=== PATIENT | male | born 1945 | race Caucasian/White ===

== ENCOUNTER 2019-11-14 08:32 | Observation (INO) ==
[~2019-11-14 08:32] MED LIST: *HR* FentaNYL (PF) 100 MCG/2 ML VIAL IVP ONE; *HR* Midazolam HCl 2 MG/2 ML VIAL IVP ONE
[2019-11-14] MEDS ORDERED: 0.9 % Sodium Chloride 500 ML ONE (09:15)
[2019-11-14] MEDS ORDERED: Naloxone 0.4 MG/ML INJ IVP PRN (11:15)
[2019-11-14] MEDS ORDERED: Ondansetron 4 MG/2 ML VIAL IVP PRN (11:15)
[2019-11-14] MEDS ORDERED: *HR* Metoprolol 5 MG/5 ML VIAL IVP ONE (12:05)
[2019-11-14 12:24] LABS: Basophils % 0.4 %; Eosinophils # 0.3 K/mcL (0.0-0.6); Eosinophils % 2.8 %; Hemoglobin 9.9 g/dL (12.9-16.9); Immature Granulocytes % 0.3 % (0-4); Lymphocytes # 2.1 K/mcL (0.6-4.6); Lymphocytes % 20.9 %; Mean Corpuscular Hemoglobin 25.8 pg (28.0-33.3); Mean Corpuscular Volume 85.9 fL (83.0-100.0); Mean Platelet Volume 9.6 fL (9.4-12.4); Monocytes # 0.7 K/mcL (0.0-1.3); Monocytes % 6.9 %; Platelet Count 270 K/mcL (140-400); Red Blood Count 3.84 M/mcL (4.19-5.50); Red Cell Distribution Width 16.1 % (11.5-14.5); Segmented Neutrophils % 68.7 %; White Blood Count 10.2 K/mcL (4.3-11.1)
[2019-11-14 12:40] LABS: BUN/Creatinine Ratio 9 (6-26); Blood Urea Nitrogen 20 mg/dL (8-23); Calcium 9.2 mg/dL (8.6-10.3); Carbon Dioxide 29 mEq/L (23-29); Chloride 103 mEq/L (98-107); Glucose 112 mg/dL (70-105); Magnesium 1.6 mg/dL (1.6-2.6); Osmolality,Calculated 291 (280-300); Phosphorous 3.9 mg/dL (2.7-4.5); Potassium 4.9 mEq/L (3.5-5.1); Sodium 139 mEq/L (136-145); Troponin I < 0.03 ng/mL (< 0.04); eGFR For African Americans 35 (> 60); eGFR For Non-African Americans 29 (> 60)
[2019-11-14 12:54] LABS: Thyroid Stimulating Hormone 2.224 mcIU/mL (0.340-5.600)
[2019-11-14] MEDS ORDERED: 0.9 % Sodium Chloride 1,000 ML IVC SCH (14:15)
[2019-11-14] MEDS: *HR* OxyCODONE Immed Rel 5 MG TABLET PO PRN ×2 (14:19→20:24)
[2019-11-14] MEDS ORDERED: Latanoprost 2.5 ML BOTTLE BOTH EYES SCH (18:00)
[2019-11-14] MEDS: *HR* Heparin 5,000 UNIT/ML VIAL SQ SCH (20:24)
[2019-11-14] MEDS ORDERED: Mirtazapine 15 MG TABLET PO SCH (21:00)
[2019-11-15 04:02] LABS: Calcium 9.3 mg/dL (8.6-10.3); Potassium 4.3 mEq/L (3.5-5.1)
[2019-11-15] MEDS: *HR* Heparin 5,000 UNIT/ML VIAL SQ SCH (05:33)
[2019-11-15] MEDS: *HR* OxyCODONE Immed Rel 5 MG TABLET PO PRN (05:39)
[2019-11-15] MEDS ORDERED: BuPROPion XL (24 HR) 150 MG TABLET PO SCH (09:00)
[2019-11-15] MEDS ORDERED: traZODone 50 MG TABLET PO SCH (09:00)
[2019-11-15 10:48] VITALS: BP 161/73
== END 2019-11-15 13:59 | disposition home or self-care (01) ==
LOC: RAD 08:32 → 2ANU 08:32
PROVIDERS: ADMIT Family Medicine; ATTEND Family Medicine

== ENCOUNTER 2019-12-25 19:57 | Inpatient (IN) ==
[2019-12-25] MEDS ORDERED: Naloxone 0.4 MG/ML INJ IVP PRN (21:44)
[2019-12-25] MEDS ORDERED: 0.9 % Sodium Chloride 1,000 ML IVC SCH (21:45)
[2019-12-26 00:39] LABS: Bilirubin,Urine Negative (Negative); Blood,Urine Moderate (Negative); Clarity,Urine Clear (Clear); Color,Urine Yellow (Yellow); Glucose,Urine (UA) Normal (Normal); Ketones,Urine Negative (Negative); Leukocyte Esterase,Urine Small (Negative); Nitrite,Urine Positive (Negative); PH,Urine 5.5 pH Units (5.0-8.0); Protein,Urine 30 mg/dL (Neg-Trace); Urobilinogen,Urine Normal (Normal)
[2019-12-26 00:53] LABS: Bacteria,Urine Moderate per hpf (None-Few); Squamous Epithelial Cell,Urine Few per lpf (None-Few)
[2019-12-26] MEDS ORDERED: Ondansetron ODT 4 MG TAB.RAPDIS SL PRN (02:24)
[2019-12-26] MEDS ORDERED: Acetaminophen 325 MG TABLET PO PRN (02:24)
[2019-12-26] MEDS ORDERED: *HR* Promethazine 25 MG/ML VIAL IVP PRN (02:24)
[2019-12-26] MEDS ORDERED: levoFLOXacin 500 MG/100 ML 500 MG/100 ML BAG IVPB SCH (03:00)
[2019-12-26 04:07] LABS: INR 1.4
[2019-12-26 04:09] LABS: Activated Partial Thrombo Time 77.6 Seconds (26.0-36.0)
[2019-12-26 04:13] LABS: Immature Granulocytes % 0.3 % (0-4)
[2019-12-26 04:14] LABS: Eosinophils # 0.1 K/mcL (0.0-0.6); Eosinophils % 4.3 %; Hematocrit 16.5 % (37.5-50.1); Lymphocytes # 0.9 K/mcL (0.6-4.6); Lymphocytes % 26.6 %; Mean Corpuscular HGB Conc 30.3 g/dL (31.6-35.5); Mean Corpuscular Hemoglobin 25.8 pg (28.0-33.3); Mean Corpuscular Volume 85.1 fL (83.0-100.0); Monocytes # 0.4 K/mcL (0.0-1.3); Monocytes % 11.5 %; Platelet Count 139 K/mcL (140-400); Red Blood Count 1.94 M/mcL (4.19-5.50); Red Cell Distribution Width 15.8 % (11.5-14.5); Segmented Neutrophils % 57.3 %; White Blood Count 3.2 K/mcL (4.3-11.1)
[2019-12-26 04:17] LABS: Neutrophils # 1.8 K/mcL (1.6-8.9)
[2019-12-26 04:18] LABS: Alanine Aminotransferase 3 Units/L (7-52); Albumin/Globulin Ratio 0.7 (1.1-2.2); Alkaline Phosphatase 17 Units/L (34-104); Aspartate Amino Transferase 8 Units/L (13-39); BUN/Creatinine Ratio 13 (6-26); Bilirubin,Total 0.2 mg/dL (0.3-1.0); Blood Urea Nitrogen 20 mg/dL (8-23); Calcium 6.3 mg/dL (8.6-10.3); Carbon Dioxide 16 mEq/L (23-29); Chloride 114 mEq/L (98-107); Glucose 78 mg/dL (70-105); Osmolality,Calculated 285 (280-300); Phosphorous 2.5 mg/dL (2.7-4.5); Potassium 3.3 mEq/L (3.5-5.1); Sodium 137 mEq/L (136-145); eGFR For African Americans 55 (> 60); eGFR For Non-African Americans 46 (> 60)
[2019-12-26 04:22] LABS: Troponin I 0.05 ng/mL (< 0.04)
[2019-12-26] MEDS ORDERED: Potassium Phosphate 44 MEQ in 0.9 % Sodium Chloride 250 ML IVPB ONE (04:43)
[2019-12-26] MEDS ORDERED: *HR* Metoprolol 5 MG/5 ML VIAL IVP PRN (04:48)
[2019-12-26 05:01] LABS: Platelet Estimate Normal (Normal)
[2019-12-26 05:05] LABS: Hematocrit 23.4 % (37.5-50.1)
[2019-12-26 05:06] LABS: Hemoglobin 7.1 g/dL (12.9-16.9)
[2019-12-26] MEDS: *HR* Heparin 5,000 UNIT/ML VIAL SQ SCH ×3 (05:32→20:52)
[2019-12-26 06:07] LABS: Iron < 10 mcg/dL (65-175); Transferrin 105 mg/dL (203-362)
[2019-12-26] MEDS: cefTRIAXone 2,000 MG in Water for inj. (sterile) 20 ML IVP SCH (06:28)
[2019-12-26] MEDS ORDERED: 0.9 % Sodium Chloride 250 ML ONE ×2 (06:35→12:32)
[2019-12-26] MEDS: BuPROPion XL (24 HR) 150 MG TABLET PO SCH (08:19)
[2019-12-26] MEDS: traZODone 50 MG TABLET PO SCH (08:19)
[2019-12-26] MEDS ORDERED: Sodium Bicarbonate 50 MEQ/50 ML VIAL IVP ONE (10:00)
[2019-12-26 10:46] LABS: Ferritin 104 ng/mL (20-250)
[2019-12-26] MEDS: Sodium Bicarbonate 75 MEQ in 0.45 % Sodium Chloride 1,000 ML IVC SCH (11:14)
[2019-12-26 18:08] LABS: Hematocrit 36.8 % (37.5-50.1)
[2019-12-26 18:10] LABS: Hemoglobin 11.7 g/dL (12.9-16.9)
[2019-12-27] MEDS: Sodium Bicarbonate 75 MEQ in 0.45 % Sodium Chloride 1,000 ML IVC SCH ×2 (00:10→16:52)
[2019-12-27] MEDS: *HR* OxyCODONE Immed Rel 5 MG TABLET PO PRN ×2 (01:59→08:23)
[2019-12-27 03:53] LABS: Eosinophils # 0.4 K/mcL (0.0-0.6); Eosinophils % 5.3 %; Hematocrit 36.2 % (37.5-50.1); Hemoglobin 11.4 g/dL (12.9-16.9); Immature Granulocytes % 0.1 % (0-4); Lymphocytes # 1.3 K/mcL (0.6-4.6); Lymphocytes % 18.5 %; Mean Corpuscular HGB Conc 31.5 g/dL (31.6-35.5); Mean Corpuscular Hemoglobin 26.2 pg (28.0-33.3); Mean Corpuscular Volume 83.2 fL (83.0-100.0); Mean Platelet Volume 10.2 fL (9.4-12.4); Monocytes # 0.6 K/mcL (0.0-1.3); Monocytes % 9.4 %; Neutrophils # 4.5 K/mcL (1.6-8.9); Platelet Count 221 K/mcL (140-400); Red Blood Count 4.35 M/mcL (4.19-5.50); Segmented Neutrophils % 66.7 %
[2019-12-27 03:55] LABS: White Blood Count 6.8 K/mcL (4.3-11.1)
[2019-12-27 04:09] LABS: Albumin 2.4 g/dL (3.5-5.7); Albumin/Globulin Ratio 0.7 (1.1-2.2); Bilirubin,Total 0.5 mg/dL (0.3-1.0); Calcium 7.7 mg/dL (8.6-10.3); Globulin 3.6 g/dL (2.4-3.5); Magnesium 1.7 mg/dL (1.6-2.6); Phosphorous 2.9 mg/dL (2.7-4.5); Potassium 3.3 mEq/L (3.5-5.1)
[2019-12-27] MEDS: cefTRIAXone 2,000 MG in Water for inj. (sterile) 20 ML IVP SCH (05:35)
[2019-12-27] MEDS: *HR* Heparin 5,000 UNIT/ML VIAL SQ SCH ×3 (05:35→21:44)
[2019-12-27] MEDS: traZODone 50 MG TABLET PO SCH (08:59)
[2019-12-27] MEDS ORDERED: levoFLOXacin 500 MG/100 ML 500 MG/100 ML BAG IVPB SCH (09:00)
[2019-12-27] MEDS ORDERED: *HR* LORazepam 0.5 MG TABLET PO PRN (09:01)
[2019-12-27] MEDS: BuPROPion XL (24 HR) 150 MG TABLET PO SCH (09:03)
[2019-12-27] MEDS ORDERED: 0.9 % Sodium Chloride 500 ML ONE ×2 (09:15→09:20)
[2019-12-27] MEDS ORDERED: *HR* Midazolam HCl 2 MG/2 ML VIAL IVP ONE (09:44)
[2019-12-27] MEDS ORDERED: *HR* FentaNYL (PF) 100 MCG/2 ML VIAL IVP ONE (09:44)
[2019-12-27] MEDS ORDERED: Isovue-300 150 ML INFUS..BTL IVP ONE (10:08)
[2019-12-27] MEDS ORDERED: *HR* OxyCODONE Immed Rel 5 MG TABLET PO PRN (10:56)
[2019-12-27] MEDS: Levalbuterol Neb 1.25 MG/3 ML IH SCH ×2 (15:16→22:29)
[2019-12-27] MEDS ORDERED: traZODone 50 MG TABLET PO SCH (21:00)
[2019-12-28 03:10] LABS: Basophils % 0.1 %; Eosinophils # 0.4 K/mcL (0.0-0.6); Eosinophils % 4.9 %; Hematocrit 32.5 % (37.5-50.1); Immature Granulocytes % 0.4 % (0-4); Lymphocytes # 1.7 K/mcL (0.6-4.6); Lymphocytes % 22.4 %; Mean Corpuscular HGB Conc 30.8 g/dL (31.6-35.5); Mean Corpuscular Hemoglobin 25.8 pg (28.0-33.3); Mean Platelet Volume 9.5 fL (9.4-12.4); Monocytes # 0.6 K/mcL (0.0-1.3); Monocytes % 8.4 %; Neutrophils # 4.8 K/mcL (1.6-8.9); Platelet Count 209 K/mcL (140-400); Red Blood Count 3.87 M/mcL (4.19-5.50); Red Cell Distribution Width 15.5 % (11.5-14.5); Segmented Neutrophils % 63.8 %; White Blood Count 7.5 K/mcL (4.3-11.1)
[2019-12-28] MEDS: Levalbuterol Neb 1.25 MG/3 ML IH SCH ×2 (03:13→09:58)
[2019-12-28 03:28] LABS: Calcium 7.7 mg/dL (8.6-10.3); Magnesium 1.6 mg/dL (1.6-2.6); Phosphorous 3.2 mg/dL (2.7-4.5); Potassium 3.5 mEq/L (3.5-5.1)
[2019-12-28] MEDS: *HR* Heparin 5,000 UNIT/ML VIAL SQ SCH ×2 (06:05→15:27)
[2019-12-28] MEDS: cefTRIAXone 2,000 MG in Water for inj. (sterile) 20 ML IVP SCH (06:05)
[2019-12-28 07:10] VITALS: BP 148/73
[2019-12-28] MEDS: BuPROPion XL (24 HR) 150 MG TABLET PO SCH (08:19)
== END 2019-12-28 15:53 | disposition home health service (06) | DRG 871 ==
LOC: 3BNU → SUATTDRO 21:31 → 2ANU 12-27 11:53
PROVIDERS: ADMIT Internal Medicine; ATTEND Internal Medicine